=== PATIENT | female | born 1980 | race Caucasian/White ===

== ENCOUNTER 2017-08-04 11:26 | Emergency (ER) | payer MEDICARE, MEDICAID, OTHER ==
[2017-08-04] MEDS ORDERED: NITROGLYCERIN (SL) 0.4 MG TAB SL (12:00)
[2017-08-04] MEDS: ASPIRIN 325 MG TAB PO (12:32)
[2017-08-04 12:47] LABS: ADD MAN DIFF? NO
[2017-08-04 12:51] LABS: WHITE BLOOD COUNT 12.4 10^3/ul (4.8-10.8)
[2017-08-04 12:51] LABS: BASOPHILS % 0.3 % (0.0-2.0); EOSINOPHILS # 0.2 10^3/ul (0.0-0.5); EOSINOPHILS % 1.9 % (0.0-7.0); HEMOGLOBIN 13.8 g/dl (12.0-16.0); LYMPHOCYTES # 1.6 10^3/ul (0.8-2.9); LYMPHOCYTES % 13.1 % (15.0-51.0); MEAN CORPUSCULAR HEMOGLOBIN 33.3 pg (29.0-33.0); MEAN CORPUSCULAR HGB CONC 33.7 g/dl (32.0-37.0); MEAN CORPUSCULAR VOLUME 98.8 fl (82.0-101.0); MEAN PLATELET VOLUME 11.1 fl (7.4-10.4); MONOCYTE # 0.7 10^3/ul (0.3-0.9); MONOCYTES % 5.2 % (0.0-11.0); NEUTROPHIL # 9.8 10^3/ul (1.6-7.5); NEUTROPHILS % 79.1 % (39.0-77.0); PLATELET COUNT 266 10^3/UL (140-415); RED BLOOD COUNT 4.15 10^6/ul (4.20-5.40); RED CELL DISTRIBUTION WIDTH 12.6 % (11.5-14.5)
[2017-08-04 13:15] LABS: INR 0.93; PARTIAL THROMBOPLASTIN TIME 24.5 Sec (25.0-35.0); PROTIME 12.6 Sec (11.9-14.9)
[2017-08-04 13:16] LABS: ALANINE AMINOTRANSFERASE 23 IU/L (13-69); ALBUMIN 4.7 g/dl (3.3-4.9); ALBUMIN/GLOBULIN RATIO 1.38; ALKALINE PHOSPHATASE 76 IU/L (42-121); ANION GAP 20 (8-16); ASPARTATE AMINO TRANSFERASE 27 IU/L (15-46); BILIRUBIN,INDIRECT 0.1 mg/dl (0-1.1); BILIRUBIN,TOTAL 0.1 mg/dl (0.2-1.3); BLOOD UREA NITROGEN 41 mg/dl (7-20); CALCIUM 9.2 mg/dl (8.4-10.2); CARBON DIOXIDE 24 mmol/L (21-31); CHLORIDE 99 mmol/L (97-110); CREATINE KINASE 66 IU/L (23-200); CREATININE 8.15 mg/dl (0.44-1.00); GLUCOSE 218 mg/dl (70-220); POTASSIUM 4.8 mmol/L (3.5-5.1); SODIUM 138 mmol/L (135-144); TOTAL PROTEIN 8.1 g/dl (6.1-8.1)
[2017-08-04 13:28] LABS: B-TYPE NATRIURETIC PEPTIDE 22800 PG/ML (0-125); CK INDEX 1.6; CK-MB 1.04 ng/ml (0.0-2.4)
[2017-08-04 13:29] LABS: TROPONIN-I < 0.012 ng/ml (0.00-0.12)
[2017-08-04] MEDS: ONDANSETRON (ODT) 4 MG TAB ODT (13:31)
== END 2017-08-04 14:28 | disposition home or self-care (01) ==
LOC: E/R 11:26
DX: M94.0 Chondrocostal junction syndrome [Tietze] (principal); I16.0 Hypertensive urgency; I12.0 Hypertensive chronic kidney disease with stage 5 chronic kidney disease or end stage renal disease; N18.6 End stage renal disease; E11.9 Type 2 diabetes mellitus without complications; Z99.2 Dependence on renal dialysis; Z79.4 Long term (current) use of insulin
CPT/HCPCS: 36415; 71045; 80053; 82550; 82553; 83880; 84484; 85025; 85610; 85730; 93005; 99285-25